=== PATIENT | male | born 2000 | race Two or more races ===

== ENCOUNTER 2018-06-28 22:49 | Emergency (ER) | payer OTHER ==
[2018-06-29] MEDS ORDERED: predniSONE TAB* 20 MG PO ONE (01:34)
--- NOTE | 2018-06-29 01:44 | ED ---
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 States he was exercising today and suddenly felt short of breath and had hives. This occurred around 9 PM. Patient states he injected himself with EpiPen at 10 PM and symptoms resolved by 11. Patient states he came to the ER because he's been told that if he uses EpiPen he should be evaluated. Denies any active symptoms, SOB, hives have resolved. Denies oral swelling at any point. - History of Current Complaint Chief Complaint: EDAllergicReaction Time Seen by Provider: 06/29/18 01:32 Hx Obtained From: Patient Onset/Duration: Sudden Onset Severity Currently: None Pain Intensity: 0 Pain Scale Used: 0-10 Numeric Character: Pruritus, Hives Aggravating Factor(s): Other Alleviating Factor(s): Epinephrine Associated Signs And Symptoms: Positive: Difficulty Breathing - Allergies/Home Medications Allergies/Adverse Reactions: Allergies Allergy/AdvReac Type Severity Reaction Status Date / Time No Known Allergies Allergy Verified 06/28/18 22:53 PMH/Surg Hx/FS Hx/Imm Hx Endocrine/Hematology History: Denies: Hx Anticoagulant Therapy Cardiovascular History: Denies: Hx Cardiac Arrest History: Denies: Hx Dialysis Sensory History: Denies: Hx Eye Prosthesis Opthamlomology History: Denies: Hx Legally Blind EENT History: Denies: Hx Deafness Neurological History: Denies: Hx Dementia Psychiatric History: Denies: Hx Autism Infectious Disease History: No Infectious Disease History: Denies: Traveled Outside the [place] in Last 30 Days - Social History Occupation: Student Alcohol Use: Occasionally Hx Substance Use: No Hx Tobacco Use: No Review of Systems Constitutional: Negative Eyes: Negative ENT: Negative Cardiovascular: Negative Positive: Shortness Of Breath Gastrointestinal: Negative Genitourinary: Negative Musculoskeletal: Negative Positive: Rash Neurological: Negative Psychological: Normal All Other Systems Reviewed And Are Negative: Yes Physical Exam - Summary Physical Exam Summary: No work of breathing noted. ENT exam normal. Lung sounds clear to auscultation bilaterally. No evidence of rash or hives. Physical exam unremarkable. Triage Information Reviewed: Yes Vital Signs On Initial Exam: Initial Vitals Temp Pulse Resp BP Pulse Ox 98.8 F 94 16 138/61 96 06/28/18 22:51 06/28/18 22:51 06/28/18 22:51 06/28/18 22:51 06/28/18 22:51 Vital Signs Reviewed: Yes Appearance: Positive: Well-Appearing Skin: Positive: Warm Head/Face: Positive: Normal Head/Face Inspection Eyes: Positive: Normal ENT: Positive: Normal ENT inspection Neck: Positive: Supple Respiratory/Lung Sounds: Positive: Clear to Auscultation Cardiovascular: Positive: Normal Abdomen Description: Positive: Nontender Musculoskeletal: Positive: Normal Neurological: Positive: Normal Psychiatric: Positive: Normal AVPU Assessment: Alert - Anthony Coma Scale Best Eye Response: 4 - Spontaneous Best Motor Response: 6 - Obeys Commands Best Verbal Response: 5 - Oriented Coma Scale Total: 15 Diagnostics - Vital Signs Vital Signs Temp Pulse Resp BP Pulse Ox 06/28/18 22:51 98.8 F 94 16 138/61 96 - Laboratory Lab Statement: Any lab studies that have been ordered have been reviewed, and results considered in the medical decision making process. 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 States he was exercising today and suddenly felt short of breath and had hives. This occurred around 9 PM. Patient states he injected himself with EpiPen at 10 PM and symptoms resolved by 11. Patient states he came to the ER because he's been told that if he uses EpiPen he should be evaluated. Denies any active symptoms, SOB, hives have resolved. Denies oral swelling at any point. Physical exam:No work of breathing noted. ENT exam normal. Lung sounds clear to auscultation bilaterally. No evidence of rash or hives. Physical exam unremarkable. Vital signs within normal limits. Rx for EpiPen. - Diagnoses Provider Diagnoses: Allergic reaction Discharge - Sign-Out/Discharge Documenting (check all that apply): Patient Departure - Discharge Plan Condition: Stable Disposition: HOME Prescriptions: EPINEPHrine [Epipen 2-Darci] 0.3 mg IM SEE INSTRUCTIONS #1 inj Patient Education Materials: General Allergic Reaction (ED) Referrals: No Primary Care Phys,NOPCP [Primary Care Provider] - - Billing Disposition and Condition Condition: STABLE Disposition: Home
[2018-06-29 01:56] VITALS: BP 126/68
== END 2018-06-29 01:56 | disposition home or self-care (01) ==
LOC: ED 22:49
DX: T78.40XA Allergy, unspecified, initial encounter (principal); R06.02 Shortness of breath; X58.XXXA Exposure to other specified factors, initial encounter
CPT/HCPCS: 99282; J7512